=== PATIENT | female | born 1985 | race American Indian/Alaskan Native ===

== ENCOUNTER 2017-04-06 11:34 | Emergency (ER) | payer SELFPAY ==
[2017-04-06 12:12] VITALS: BP 134/77
--- NOTE | 2017-04-06 12:14 | Emergency Department Report ---
Chief Complaint: Arrhythmia/Palpitations Stated Complaint: GRAVES DISEASE/HIGH HEART RATE Time Seen by Provider: 04/06/17 12:09 - HPI History of Present Illness: PT states she has a hx of Graves disease. PT states she has been off of her medication about 6 months. PT states she started feeling palpitations yesterday. PT states she just wants to get checked. - ROS Review of Systems: + cp + palpitations - Exam Vital Signs: Vital Signs 04/06/17 12:10 Temperature 97.5 F L Pulse Rate 131 H Respiratory 16 Rate Blood Pressure 134/77 O2 Sat by Pulse 97 Oximetry Physical Exam: pt looks well, non toxic. steady gait. tachycardic MSE screening note: Focused history and physical exam performed. Due to findings the following was ordered: ekg, labs, xr ED Disposition for MSE Condition: Stable
== END 2017-04-06 12:20 | disposition left against medical advice (07) ==
LOC: ED 11:34
DX: R00.2 Palpitations (principal); Z53.21 Procedure and treatment not carried out due to patient leaving prior to being seen by health care provider
CPT/HCPCS: 93005; 93010

== ENCOUNTER 2017-04-07 09:35 | Emergency (ER) | payer SELFPAY ==
[2017-04-07 10:50] LABS: Basophils % (Auto) 0.2 % (0.0-1.8); Eosinophils % (Auto) 0.3 % (0.0-4.3); Hematocrit 35.7 % (30.3-42.9); Hemoglobin 11.2 gm/dl (10.1-14.3); Mean Corpuscular HGB Conc 32 % (30-34); Platelet Count 121 K/mm3 (140-440); Red Blood Count 5.15 M/mm3 (3.65-5.03); Red Cell Distribution Width 14.4 % (13.2-15.2); White Blood Count 4.7 K/mm3 (4.5-11.0)
[2017-04-07 10:58] LABS: Mean Corpuscular Hemoglobin 22 pg (28-32); Mean Corpuscular Volume 69 fl (79-97)
--- NOTE | 2017-04-07 11:00 | XRay Report ---
CHEST TWO VIEWS: 04/07/17 09:35:00 CLINICAL: Chest pain. COMPARISON: 10/02/15 FINDINGS: Normal heart and pulmonary vasculature. The lungs are normally expanded and clear.The bones and soft tissues are unremarkable. IMPRESSION: Normal chest.
[2017-04-07 11:17] LABS: Alanine Aminotransferase 41 units/L (7-56); Albumin 3.9 g/dL (3.9-5); Albumin/Globulin Ratio 1.2 %; Alkaline Phosphatase 158 units/L (35-129); Anion Gap 17 mmol/L; Blood Urea Nitrogen 8 mg/dL (7-17); Carbon Dioxide 25 mmol/L (22-30); Chloride 106.9 mmol/L (98-107); Glucose 99 mg/dL (65-100); Potassium 3.8 mmol/L (3.6-5.0); Sodium 145 mmol/L (137-145); Total Protein 7.1 g/dL (6.3-8.2)
[2017-04-07] MEDS ORDERED: LOPRESSOR IV ONE (12:56)
--- NOTE | 2017-04-07 13:02 | Emergency Department Report ---
HPI - General Chief Complaint: Medical Clearance Time Seen by Provider: 04/07/17 12:49 - HPI HPI: Nolen 28 The patient is a 31-year-old female presenting with a chief complaint palpitations. The patient has a history of Graves' disease and states she's been off her medication for some time. Patient states yesterday she developed palpitations and shortness of breath came to the ED. Patient states she left yesterday without being seen by returns today because she needs an excuse for work. Patient currently denies chest pain but states it feels as though her heart is beating quickly Location: Chest Duration: Days Quality: Palpitations Severity: Moderate Modifying factors: [see above] Context: [see above] Mode of transportation: Unknown ED Past Medical Hx - Past Medical History Previous Medical History?: Yes Additional medical history: Graves disease, fibroids - Surgical History Past Surgical History?: No - Family History Family history: no significant - Social History Smoking Status: Never Smoker Substance Use Type: None (denies illicit drug use), Alcohol (occasional) - Medications Home Medications: Home Medications Medication Instructions Recorded Confirmed Last Taken Type Atenolol [Tenormin] 50 mg PO QDAY #90 tablet 04/07/17 Unknown Rx ED Review of Systems ROS: Stated complaint: GRAVES DISEASE/MINOR CHEST PAIN/MED REFILL Other details as noted in HPI Comment: All other systems reviewed and negative Constitutional: denies: chills, fever Eyes: denies: eye pain, eye discharge, vision change ENT: denies: ear pain, throat pain Respiratory: shortness of breath Cardiovascular: palpitations. denies: chest pain Endocrine: no symptoms reported Gastrointestinal: denies: abdominal pain, nausea, diarrhea Genitourinary: denies: urgency, dysuria, discharge Musculoskeletal: denies: back pain, joint swelling, arthralgia Skin: denies: rash, lesions Neurological: denies: headache, weakness, paresthesias Psychiatric: denies: anxiety, depression Hematological/Lymphatic: denies: easy bleeding, easy bruising Physical Exam - Physical Exam Vital Signs: Vital Signs 04/07/17 04/07/17 10:04 11:24 Temperature 98.6 F 99.1 F Pulse Rate 114 H 122 H Respiratory 16 20 Rate Blood Pressure 150/95 Blood Pressure 145/79 [Left] O2 Sat by Pulse 100 100 Oximetry Physical Exam: GENERAL: The patient is well-developed well-nourished female sitting on stretcher not appearing to be in acute distress. [] HEENT: Normocephalic. Atraumatic. Extraocular motions are intact. Patient has moist mucous membranes. NECK: Supple. No meningitic signs are noted. There is no adenopathy noted. CHEST/LUNGS: Clear to auscultation. There is no respiratory distress noted. HEART/CARDIOVASCULAR: Regular. There is tachycardia. ABDOMEN: Abdomen is soft, nontender. Patient has normal bowel sounds. There is no abdominal distention. SKIN: There is no rash. There is no edema. There is no diaphoresis. NEURO: The patient is awake, alert, and oriented. The patient is cooperative. The patient has normal speech MUSCULOSKELETAL: There is no evidence of acute injury. ED Course Vital Signs 04/07/17 04/07/17 10:04 11:24 Temperature 98.6 F 99.1 F Pulse Rate 114 H 122 H Respiratory 16 20 Rate Blood Pressure 150/95 Blood Pressure 145/79 [Left] O2 Sat by Pulse 100 100 Oximetry - Reevaluation(s) Reevaluation #1: 04/07/17 13:52 Heart Rate 96-99 after metoprolol ED Medical Decision Making - Lab Data Result diagrams: 04/07/17 10:28 04/07/17 10:28 Laboratory Tests 04/07/17 04/07/17 04/07/17 10:28 10:28 10:28 WBC 4.7 RBC 5.15 H Hgb 11.2 Hct 35.7 MCV 69 L MCH 22 L MCHC 32 RDW 14.4 Plt Count 121 L Lymph % (Auto) 44.8 H [place] % (Auto) 15.5 H Eos % (Auto) 0.3 Baso % (Auto) 0.2 Lymph # 2.1 [place] # 0.7 Eos # 0.0 Baso # 0.0 Seg Neutrophils % 39.2 L Seg Neutrophils # 1.8 Sodium 145 Potassium 3.8 Chloride 106.9 Carbon Dioxide 25 Anion Gap 17 BUN 8 Creatinine 0.4 L Estimated GFR > 60 BUN/Creatinine Ratio 20.00 Glucose 99 Calcium 9.0 Total Bilirubin 0.30 AST 34 ALT 41 Alkaline Phosphatase 158 H Troponin T < 0.010 Total Protein 7.1 Albumin 3.9 Albumin/Globulin Ratio 1.2 TSH Free T4 6.72 H HCG, Qual 04/07/17 04/07/17 10:28 10:28 WBC RBC Hgb Hct MCV MCH MCHC RDW Plt Count Lymph % (Auto) [place] % (Auto) Eos % (Auto) Baso % (Auto) Lymph # [place] # Eos # Baso # Seg Neutrophils % Seg Neutrophils # Sodium Potassium Chloride Carbon Dioxide Anion Gap BUN Creatinine Estimated GFR BUN/Creatinine Ratio Glucose Calcium Total Bilirubin AST ALT Alkaline Phosphatase Troponin T Total Protein Albumin Albumin/Globulin Ratio TSH < 0.005 L Free T4 HCG, Qual Negative - EKG Data -: EKG Interpreted by Me EKG shows normal: sinus rhythm Rate: tachycardia (114 bpm) - EKG Data When compared to previous EKG there are: previous EKG unavailable Interpretation: other (no ischemic changes seen) - Radiology Data Radiology results: image reviewed (chest x-ray) interpreted by me: Chest x-ray- no focal infiltrates, no pneumothorax - Differential Diagnosis Graves' disease, hyperthyroidism Critical care attestation.: If time is entered above; I have spent that time in minutes in the direct care of this critically ill patient, excluding procedure time. ED Disposition Clinical Impression: Graves disease, Hyperthyroidism, Sinus tachycardia Disposition: DC- TO HOME OR SELFCARE Is pt being admited?: No Does the pt Need Aspirin: No Condition: Stable Instructions: Palpitations (ED), Hyperthyroidism (ED) Additional Instructions: Return to the emergency department immediately should you develop worsening symptoms, fever, inability to tolerate food or liquid or any other concerns. Prescriptions: Atenolol [Tenormin] 50 mg PO QDAY #90 tablet Referrals: [facility] [Outside] - 3-5 Days ABBE LEBLANC MD [Staff Physician] - [facility] (Dr Leblanc is an manufacturing operations manager. Please follow up with him for further management of your Graves disease) JOSAFAT ZARAGOZA MD [Staff Physician] - 3-5 Days (Internal medicine physician. Please follow up with him to be established as a patient) Time of Disposition: 13:55
[2017-04-07 13:48] VITALS: BP 125/84
== END 2017-04-07 14:09 | disposition home or self-care (01) ==
LOC: ED 09:35
DX: E05.00 Thyrotoxicosis with diffuse goiter without thyrotoxic crisis or storm (principal); E05.90 Thyrotoxicosis, unspecified without thyrotoxic crisis or storm; R00.0 Tachycardia, unspecified
CPT/HCPCS: 36415; 71020; 80053; 84439; 84443; 84484; 84703; 85025; 93005; 93010; 96374